=== PATIENT | female | born 1960 | race Caucasian/White ===

== ENCOUNTER 2024-04-30 17:23 | Emergency (ER) | payer MEDICARE, MEDICAID ==
[2024-04-30] MEDS ORDERED: Sodium Chloride 0.9% 10 ML Syringe FLUSH PRN ×2 (17:34→19:40)
[2024-04-30 18:17] LABS: APPEARANCE,URINE SLIGHTLY CLOUDY (CLEAR); BASOPHILS ABSOLUTE AUTO 0.03 10^3/uL (0.00-0.50); BASOPHILS PERCENT AUTO 0.2 % (0-1); BILIRUBIN,URINE NEGATIVE (NEGATIVE); COLOR,URINE YELLOW (YELLOW); GLUCOSE,URINE NEGATIVE (NEGATIVE); HEMATOCRIT 41.5 % (37.0-47.0); HEMOGLOBIN 13.4 g/dL (12.0-16.0); IMMATURE GRAN ABSOLUTE AUTO 0.11 10^3/uL (0.00-0.49); IMMATURE GRAN PERCENT AUTO 0.6 % (0.0-4.9); KETONES,URINE NEGATIVE (NEGATIVE); LEUKOCYTE ESTERASE,URINE TRACE (NEGATIVE); LYMPHOCYTES PERCENT AUTO 2.1 % (24-44); MEAN CORPUSCULAR HEMOGLOBIN 31.3 pg (27.0-32.0); MEAN CORPUSCULAR HGB CONC 32.3 g/dL (32.0-36.0); MONOCYTES ABSOLUTE AUTO 2.56 10^3/uL (0.00-1.50); MONOCYTES PERCENT AUTO 13.7 % (0-10); NEUTROPHILS ABSOLUTE AUTO 15.53 x10^3/uL (1.80-8.00); NEUTROPHILS PERCENT AUTO 83.4 % (41-71); NITRITE,URINE NEGATIVE (NEGATIVE); OCCULT BLOOD,URINE MODERATE (NEGATIVE); PLATELET COUNT,PLT 144 10^3/uL (150-400); PROTEIN,URINE >=300 mg/dL (NEGATIVE); RED BLOOD CELL COUNT 4.28 x10^6/uL (4.00-5.50); UROBILINOGEN,URINE 0.2 EU/dL (0.2-1.0); WHITE BLOOD CELL COUNT,WBC 18.6 10^3/uL (4.0-11.0)
[2024-04-30 18:25] LABS: INR 1.14 (0.92-1.18); PROTHROMBIN TIME 11.9 SEC (9.3-11.3)
[2024-04-30 18:26] LABS: BACTERIA,URINE FEW /HPF (NOT SEEN); SQUAMOUS EPITHELIAL CELLS,UR FEW /HPF (NOT SEEN); WBC,URINE >100 /HPF (0-5)
[2024-04-30 18:41] LABS: ALANINE AMINOTRANSFERASE,ALT 56 U/L (12-78); ALBUMIN 2.7 g/dL (3.4-5.0); ALKALINE PHOSPHATASE 94 U/L (46-116); ASPARTATE AMNIOTRANSFERASE,AST 104 U/L (15-37); BILIRUBIN TOTAL 0.8 mg/dL (0.0-1.0); BLOOD UREA NITROGEN,BUN 40 mg/dL (7-18); CALCIUM 8.9 mg/dL (8.4-10.1); CARBON DIOXIDE,CO2 28 mmol/L (21-32); CHLORIDE,CL 95 mEq/L (98-106); CREATININE 1.8 mg/dL (0.6-1.0); GLUCOSE RANDOM 138 mg/dL (75-99); POTASSIUM,K 3.1 mEq/L (3.5-5.0); PROTEIN TOTAL,TP 7.1 g/dL (6.4-8.2); SODIUM,NA 136 mEq/L (136-145)
[2024-04-30 18:42] LABS: CREATINE KINASE,CK 1351 U/L (21-215); ESTIMATED GFR 31 mL/min (>=60)
[2024-04-30] MEDS: Sodium Chloride 0.9% 1,000 ML IV ONE ×2 (19:02→20:18)
[2024-04-30] MEDS: Potassium Chloride Riders 20 MEQ in Premix Bag 1 BAG IV SCH (19:52)
[2024-04-30] MEDS ORDERED: Sodium Chloride 0.9% 1,000 ML IV SCH (20:15)
[2024-04-30] MEDS: cefTRIAXone 2 GM Vial IVPUSH ONE (20:17)
[2024-04-30] MEDS: Ampicillin 1 GM Vial IVPUSH ONE (20:18)
[2024-04-30 21:06] VITALS: BP 97/49; PULSE 99
== END 2024-04-30 20:45 ==
LOC: CC.ED 17:23
DX: A41.9 Sepsis, unspecified organism (principal); R65.20 Severe sepsis without septic shock; N17.9 Acute kidney failure, unspecified; M62.82 Rhabdomyolysis; D72.829 Elevated white blood cell count, unspecified; R53.1 Weakness; R79.89 Other specified abnormal findings of blood chemistry; Z88.8 Allergy status to other drugs, medicaments and biological substances
CPT/HCPCS: 36415; 70450; 71045; 80053; 81001; 82550; 83605; 83735; 84484; 85025; 85610; 85730; 86140; 87040; 87077; 87086; 87088; 87186; 93005; 93010; 96361; 96365; 96375; 99284; 99285-25; J0696; J3480; J7030

== ENCOUNTER → 2024-10-22 | Day surgery (SDC) | payer MEDICARE, MEDICAID ==
[~2024-10-22] MED LIST: Ketamine 200 MG/20 ML MDV ONE; Midazolam 1 MG/ML 2 ML SDV ONE; Propofol 200 MG/20 ML SDV ONE; fentaNYL 50 MCG/ML SDV ONE
[2024-10-22] MEDS: Lactated Ringers 1,000 ML IV SCH (08:09)
[2024-10-22 10:12] VITALS: BP 132/65; PULSE 83
== END ==
LOC: CC.SDS 07:54
PROVIDERS: ATTEND Family Medicine
DX: D12.5 Benign neoplasm of sigmoid colon (principal); K57.30 Diverticulosis of large intestine without perforation or abscess without bleeding; R19.7 Diarrhea, unspecified; I10 Essential (primary) hypertension; E66.9 Obesity, unspecified; F17.210 Nicotine dependence, cigarettes, uncomplicated; Z88.8 Allergy status to other drugs, medicaments and biological substances; Z79.899 Other long term (current) drug therapy; Z79.82 Long term (current) use of aspirin; Z79.890 Hormone replacement therapy; Z68.35 Body mass index [BMI] 35.0-35.9, adult
CPT/HCPCS: 00811; 88305; J2250; J2704; J3010; J3490; J7120

== ENCOUNTER 2025-09-01 20:18 | Emergency (ER) | payer MEDICARE, MEDICAID ==
[2025-09-01 20:41] VITALS: BP 176/92; PULSE 95
[2025-09-01] MEDS: Take Home: Acetaminophen/oxyCODONE 325-5 MG, 2 Tab Pack PO ONE (21:12)
== END 2025-09-01 21:15 | disposition home or self-care (01) ==
LOC: CC.ED 20:18
DX: G89.18 Other acute postprocedural pain (principal); M54.9 Dorsalgia, unspecified; Z88.8 Allergy status to other drugs, medicaments and biological substances; Z79.899 Other long term (current) drug therapy
CPT/HCPCS: 71046; 99283; A9270-GY

== ENCOUNTER 2025-09-18 12:07 | Emergency (ER) | payer MEDICARE, MEDICAID ==
[2025-09-18 12:26] LABS: BASOPHILS ABSOLUTE AUTO 0.03 10^3/uL (0.00-0.50); BASOPHILS PERCENT AUTO 0.4 % (0-1); EOSINOPHILS ABSOLUTE AUTO 0.15 10^3/uL (0.00-1.50); EOSINOPHILS PERCENT AUTO 2.0 % (0-6); IMMATURE GRAN ABSOLUTE AUTO 0.03 10^3/uL (0.00-0.49); IMMATURE GRAN PERCENT AUTO 0.4 % (0.0-4.9); LYMPHOCYTES ABSOLUTE AUTO 0.90 10^3/uL (0.60-5.00); LYMPHOCYTES PERCENT AUTO 12.2 % (24-44); MONOCYTES ABSOLUTE AUTO 1.14 10^3/uL (0.00-1.50); MONOCYTES PERCENT AUTO 15.4 % (0-10); NEUTROPHILS ABSOLUTE AUTO 5.13 x10^3/uL (1.80-8.00); NEUTROPHILS PERCENT AUTO 69.6 % (41-71); PLATELET COUNT,PLT 162 10^3/uL (150-400); RED BLOOD CELL COUNT 3.96 x10^6/uL (4.00-5.50); WHITE BLOOD CELL COUNT,WBC 7.4 10^3/uL (4.0-11.0)
[2025-09-18 12:28] LABS: APPEARANCE,URINE CLEAR (CLEAR); GLUCOSE,URINE NEGATIVE (NEGATIVE); OCCULT BLOOD,URINE TRACE-INTACT (NEGATIVE)
[2025-09-18 12:33] LABS: SQUAMOUS EPITHELIAL CELLS,UR MANY /HPF (NOT SEEN)
[2025-09-18 12:46] LABS: ALANINE AMINOTRANSFERASE,ALT 27.0 U/L (12-78); ASPARTATE AMNIOTRANSFERASE,AST 26.0 U/L (15-37); BILIRUBIN TOTAL 0.6 mg/dL (0.0-1.0); BLOOD UREA NITROGEN,BUN 22.0 mg/dL (7-18); CARBON DIOXIDE,CO2 36.0 mmol/L (21-32); CHLORIDE,CL 97.0 mEq/L (98-106); CREATININE 1.5 mg/dL (0.6-1.0); EST CRCL DRUG DOSING (CG) 38.22 mL/min; ESTIMATED GFR 39.0 mL/min (>=60); GLUCOSE RANDOM 102.0 mg/dL (75-99); POTASSIUM,K 4.1 mEq/L (3.5-5.0); PROTEIN TOTAL,TP 7.2 g/dL (6.4-8.2); SODIUM,NA 139.0 mEq/L (136-145)
[2025-09-18] MEDS ORDERED: Sodium Chloride 0.9% 10 ML Syringe FLUSH PRN (12:55)
[2025-09-18] MEDS: Iopamidol 755 Mg/ML 100 ML Bottle IVPUSH ONE (14:00)
[2025-09-18 14:44] VITALS: BP 140/72; PULSE 94
[2025-09-18] MEDS: Take Home: Doxycycline 100 MG Cap, 4 Cap Pack PO ONE (16:19)
== END 2025-09-18 16:20 | disposition home or self-care (01) ==
LOC: CC.ED 12:07
DX: J18.9 Pneumonia, unspecified organism (principal); I10 Essential (primary) hypertension; E78.00 Pure hypercholesterolemia, unspecified; J44.9 Chronic obstructive pulmonary disease, unspecified; M19.90 Unspecified osteoarthritis, unspecified site; E03.9 Hypothyroidism, unspecified; Z90.710 Acquired absence of both cervix and uterus; Z87.891 Personal history of nicotine dependence; Z88.8 Allergy status to other drugs, medicaments and biological substances; Z79.890 Hormone replacement therapy; Z79.82 Long term (current) use of aspirin; Z79.899 Other long term (current) drug therapy
CPT/HCPCS: 36415; 74177; 80053; 81001; 83690; 85025; 86140; 96360; 99284; A9270; J7030; Q9967